=== PATIENT | male | born 1955 | race African-American/Black ===

== ENCOUNTER → 2018-09-24 | Outpatient (CLI) | payer OTHER ==
[~2018-09-24] MED LIST: ALLOPURINOL 30300 M2 PO; BYSTOLIC 5 MG5 M1 PO; CELEBREX 200 M200 M1 PO; CENTRUM SILVER1 EAC4 PO; COLCHICINE0.6 MG PO; HYDROCODONE-AP1 EAC6 PO; LIPITOR10 MG PO; MILLIPRED DP5 MG PO; PREDNISONE 10 M10 MG PO; PRINIVIL20 MG PO; PROBENECID500 MG PO
== END ==
LOC: ULTRA 10:08
DX: D17.21 Benign lipomatous neoplasm of skin and subcutaneous tissue of right arm (principal); R22.31 Localized swelling, mass and lump, right upper limb

== ENCOUNTER 2019-05-12 15:46 | Emergency (ER) | payer OTHER ==
[~2019-05-12] VITALS: Ht 182.9 cm; Wt 95.3 kg
[2019-05-12 15:47] VITALS: BP 137/76
[2019-05-12] MEDS ORDERED: BACTRIM DS TAB1 EACH PO (16:01)
[2019-05-12] MEDS ORDERED: TYLENOL325 MG PO (16:01)
== END 2019-05-12 16:31 | disposition home or self-care (01) ==
LOC: ER 15:46
DX: L02.414 Cutaneous abscess of left upper limb (principal); I10 Essential (primary) hypertension; M10.9 Gout, unspecified

== ENCOUNTER 2019-12-05 05:56 | Day surgery (SDC) | payer OTHER ==
[~2019-12-05] VITALS: Ht 182.9 cm; Wt 97.5 kg
[~2019-12-05 05:56] MED LIST changes: -ALLOPURINOL 30300 M2 PO; +BACTRIM DS TAB1 EACH PO; +LISINOPRIL-HCT1 EACH PO; +TADALAFIL20 M1 PO; +TOPROL XL50 MG PO; +TYLENOL325 MG PO; +ZYLOPRIM300 MG PO
[2019-12-05 07:56] LABS: CALCIUM 9.1 mg/dL (8.5-10.1); POTASSIUM 4.2 mmol/L (3.5-5.1)
[2019-12-05 07:57] VITALS: BP 145/75
[2019-12-05] MEDS ORDERED: COLACE 100 MG100 MG PO (08:17)
[2019-12-05] MEDS ORDERED: OXYCODONE HCL 55 MG PO (08:17)
[2019-12-05] MEDS ORDERED: ACETAMINOPHEN325 M1 PO (08:17)
[2019-12-05] MEDS ORDERED: MIRALAX17 GM PO (08:17)
[2019-12-05 08:43] VITALS: BP 145/75
--- NOTE | 2019-12-05 15:01 | EKG ---
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
--- NOTE | 2019-12-06 16:06 | PATH ---
[facility] [address] [place] [address] PATHOLOGY RPT PROCEDURE Name: MARGOT TRUJILLO Room #: [facility]P [facility]..#: [id number] Admission: 12/05/19 Date of : 55 Discharge: 12/05/19 Report #: [id number] Path Case #: [id number] [facility] Accession Number: [id number] . 01 Material submitted: . shoulder - RIGHT SHOULDER MASS. Modifiers: right . 01 Clinical history: . Right shoulder mass . 02 Diagnosis: Mature adipose tissue, right shoulder mass, excision: - Compatible with a lipoma. . (IUV:mml; 12/06/2019) [facility] 12/06/2019 1429 Local . 02 Electronically signed: . Linda Joshua MD, Pathologist NPI- [id number] . 01 Gross description: . The specimen is received in formalin, labeled "Margot Trujillo Sr., right shoulder mass". Received is a segment of yellow-nails lobulated tissue measuring 6.4 x 6.1 x 2.5 cm in greatest dimensions. Sectioning reveals bright yellow cut surfaces with no grossly distinct nodules or lesions. The specimen is submitted representatively in cassette A1 and A2. (CAA; 12/05/2019) QAC/QAC 12/05/2019 1624 Local . 02 Pathologist provided ICD-10: D17.21 . 02 CPT . 872397 Specimen Comment: A courtesy copy of this report has been sent to [phone], [phone] Specimen Comment: [id number] Specimen Comment: Report sent to / DR DANIELS Performed at: [address], [place] [id number] MD Hayden Louis MD Phone: [phone] Performed at: [address], [place] [id number] MD Linda Joshua MD Phone: [phone]
== END 2019-12-05 09:25 | disposition home or self-care (01) ==
LOC: OR 05:56 → TBA 05:57 → OR 09:25
PROVIDERS: Orthopaedic Surgery
DX: D17.21 Benign lipomatous neoplasm of skin and subcutaneous tissue of right arm (principal); I10 Essential (primary) hypertension; E78.5 Hyperlipidemia, unspecified; M10.9 Gout, unspecified; Z98.890 Other specified postprocedural states; Z79.899 Other long term (current) drug therapy
CPT/HCPCS: 50010; 50101; 50386; 50417; 54118; 56526; 56527; 62110; 62900; 70005